=== PATIENT | male | born 1975 | race Caucasian/White ===

== ENCOUNTER 2020-03-12 00:30 | Inpatient (IN) | payer BC, SELFPAY ==
[2020-03-12] VITALS (16 sets, daily range): BP systolic 103–136; BP diastolic 59–82; PULSE 73–117; RESP 13–26; TEMP 36.1–38.1; O2SAT 94–100; BMI 26.0
--- NOTE | ~2020-03-12 | CT_ITS ---
EXAMINATION: CT femur LT w con DATE: 03/12/2020 02:47 INDICATION: Left thigh wound and pain. TECHNIQUE: Computed tomography (CT) of the left femur was performed with 100 mL Omnipaque 350 intrave nous contrast. Automated exposure control and iterative reconstruction technique were employed. The d ose-length product was 1131.82 mGy-cm. COMPARISON: None FINDINGS: Bone alignment is normal. No fracture. There is moderate left hip joint osteoarthritis with loose bodies. There is mild left knee osteoarthritis. No knee joint effusion. There is a skin defect in the proximal anterior thigh. There is hypoattenuation of vastus lateralis muscle and proximal rec tus femoris muscle. There is a fluid collection between the tensor fascia husam and iliotibial band an d vastus lateralis muscle measuring 6.7 x 1.5 x 12 cm with foci of gas. There is a small volume of fl uid with focus of gas adjacent to rectus femoris muscle proximally. There is subcutaneous edema in th e thigh with a lateral predominance. IMPRESSION: 1. Abscess in the left thigh anterior compartment with myositis involving vastus lateralis muscle and proximal rectus femoris muscle and some foci of soft tissue gas. Correlate clinically for necrotizin g fasciitis. Reviewed, dictated and finalized at location A. IMPRESSION: 1. Abscess in the left thigh anterior compartment with myositis involving vastu s lateralis muscle and proximal rectus femoris muscle and some foci of soft tis amy gas. Correlate clinically for necrotizing fasciitis.
--- NOTE | ~2020-03-12 | XR_ITS ---
EXAMINATION: XR femur LT min 2V DATE: 03/12/2020 01:34 INDICATION: Left thigh pain. TECHNIQUE: 2 views of left femur on 4 radiographs were obtained. COMPARISON: None. FINDINGS: Bone alignment is normal. No fracture. There is moderate left hip osteoarthritis with loose bodies. There is mild left knee osteoarthritis. No knee joint effusion. There is soft tissue swellin g of the thigh with foci of soft tissue gas. IMPRESSION: 1. Soft tissue swelling of the thigh with foci of soft tissue gas, consistent with infection. Correla te clinically for necrotizing fasciitis. 2. Polyarticular osteoarthritis. Left hip joint bodies. Reviewed, dictated and finalized at location A. IMPRESSION: 1. Soft tissue swelling of the thigh with foci of soft tissue gas, consistent w ith infection. Correlate clinically for necrotizing fasciitis. 2. Polyarticular osteoarthritis. Left hip joint bodies.
--- NOTE | 2020-03-12 00:58 | ED.LOWEXIN ---
HPI - Extremity Injury (Lower) General Chief Complaint: Extremity Injury, Lower Stated Complaint: left leg injury Time Seen by Provider: 03/12/20 00:57 Source: RN notes reviewed History of Present Illness HPI Narrative: Patient presents emergency department from home for left leg wound. Patient states that on 03/07/2020 he was carrying a box down the stairs when he had been stuck in the left anterior proximal thigh by a wooden spindle. He states initially he had some mild tenderness to the area and started yesterday began to have erythema and swelling noted on the left lateral leg states the pain is progressively worsened. Denies any fevers or chills numbness or tingling in the extremities or any other symptoms Related Data Home Medications Medication Instructions Recorded Confirmed paroxetine HCl 30 mg PO QAM 03/12/20 03/12/20 Allergies Allergy/AdvReac Type Severity Reaction Status Date / Time Sulfa (Sulfonamide Allergy Itching Verified 03/12/20 00:54 Antibiotics) Review of Systems Review of Systems: Narrative: Gen.: Denies fevers or chills ENT: Denies congestion Respiratory: Denies shortness of breath or cough CV: Denies chest pain or palpitations GI: Denies abdominal pain nausea, emesis or diarrhea Musculoskeletal: See HPI Neuro: Denies numbness, tingling, weakness or focal weakness Skin: See HPI Except as documented, all other systems reviewed and negative FORMERLY [facility], [facility] Past Medical History Medical History (Updated 03/12/20 @ 04:10 by Kermit Grider DO) Patient denies significant medical history Social History Social History (Updated 03/12/20 @ 01:00 by Kermit Grider DO) Smoking status: Never smoker Exam Narrative: Exam Narrative: APPEARANCE: No acute distress, nontoxic, resting in bed EYES: EOMI HEENT: Normocephalic, atraumatic, OMM RESPIRATORY: No respiratory distress Clear to auscultation bilaterally with no rhonchi wheezing or rales. CARDIOVASCULAR: Regular rate and rhythm without murmurs rubs or gallops. ABDOMINAL: Soft, nontender, nondistended, no rebound or guarding MUSCULOSKELETAl: Moves all extremities. No clubbing, cyanosis erythema over the left anterior lateral thigh down to the lateral knee with swelling present, tenderness palpation of the lateral thigh, left anterior superior leg has a open to centimeter wound with surrounding erythema no active drainage dorsalis pedis pulse 2+ NEURO: Awake and alert. Following commands, speech normal, no focal deficits SKIN:: Warm, dry. No rashes lesions or abrasions PSYCHIATRIC: Normal affect/mood, Course Course Emergency Course: Called and discussed with radiology Dr. Pate. CT scan shows only air and fluid in the abscess no other signs of air believes this is a abscess at this time. No signs of necrotizing fasciitis Called and discussed with Dr. Emmanuel for general surgery presentation work-up. Agrees with admission to his service at this time. Request patient remain n.p.o. Agrees with vancomycin and Zosyn Discussed with patient and family results of workup and diagnosis. Discussed need for admission. Patient and family understand and agree to current treatment plan Vital Signs Vital signs: Vital Signs Temperature 99.4 F 03/12/20 00:34 Pulse Rate 117 H 03/12/20 00:34 Respiratory Rate 18 03/12/20 00:34 Blood Pressure 125/80 03/12/20 00:34 Pulse Oximetry 100 03/12/20 00:34 Temperature 99.4 F 03/12/20 00:34 Pulse Rate 117 H 03/12/20 00:34 Respiratory Rate 18 03/12/20 00:34 Blood Pressure 125/80 03/12/20 00:34 Pulse Oximetry 100 03/12/20 00:34 MDM - Extremity Injury (Lower) Lab Data Result diagrams: 03/12/20 01:12 03/12/20 01:12 Labs: Lab Results 03/12/20 03/12/20 03/12/20 Range/Units 01:12 01:12 01:12 WBC 8.6 (4.5-10.0) K/mm3 RBC 4.07 L (4.6-6.20) M/mm3 Hgb 13.0 L (14.0-18.0) g/dL Hct 37.3 L (42.0-52.0) % MCV 91.6 (80-100) fl MCH 3
[2020-03-12 01:21] LABS: Basophils Percent Auto 0.2 % (0.2-1.2); Eosinophils Absolute Auto 0.1 K/mm3 (0-0.3); Eosinophils Percent Auto 0.9 % (0-4.4); Hematocrit 37.3 % (42.0-52.0); Immature Granulocyte Absolute 0.07 K/mm3 (0.00-0.031); Immature Granulocyte Percent A 0.8 % (0-0.5); Lymphocytes Absolute Auto 1.59 K/mm3 (0.9-3.2); Lymphocytes Percent Auto 18.6 % (18.3-44.2); Mean Corpuscular HGB Conc 34.9 g/dl (32-36); Mean Corpuscular Hemoglobin 31.9 pg (26-34); Mean Corpuscular Volume 91.6 fl (80-100); Mean Platelet Volume 8.9 fl (7.4-10.4); Monocytes Absolute Auto 0.6 K/mm3 (0.1-0.6); Monocytes Percent Auto 6.7 % (2.6-8.5); Neutrophils Absolute Auto 6.2 K/mm3 (1.3-6.7); Neutrophils Percent Auto 72.8 % (45.5-73.1); Platelet Count Result 301 k/mm3 (150-375); Red Blood Count 4.07 M/mm3 (4.6-6.20); Red Cell Distribution Width 12.8 % (11.5-14.5); White Blood Count 8.6 K/mm3 (4.5-10.0)
[2020-03-12 01:33] LABS: Anion Gap 10 mmol/L (8-16); Blood Urea Nitrogen 7 mg/dL (9-20); Calcium 9.2 mg/dL (8.4-10.2); Carbon Dioxide 26 mmol/L (22-30); Chloride 104 mmol/L (98-107); Estimated CRCL calculation 94 ml/min; Estimated Glomerular Filt Rate > 60; Glucose 134 mg/dL (75-110); Lactic Acid Reflex 1.5 mmol/L (0.7-2.1); Potassium 3.6 mmol/L (3.4-5.0); Sodium 140 mmol/L (137-145)
[2020-03-12] MEDS: MORPHINE SULFATE 4 MG/ML INJ IV PUSH ×6 (02:05→23:57)
--- NOTE | 2020-03-12 05:46 | ADMGEN ---
This patient, Joseph Francois, was admitted to 2 Medical Room 251-01. Patient/family oriented to hospital policies and general routines including ID bracelet, bed and alarms, visiting hours, pain management, procedures, bathroom and other care routines, personal items, smoking policy, room service/diet, and visiting hours. Valuables list has been completed. Information on how to activate the Rapid Response Team has been discussed. Patient/Family are encouraged to report perceived risks to care and to ask questions if they do not understand what they are told or what they should do.
[2020-03-12] MEDS: SODIUM CHLORIDE 0.9% IV 1,000 ML 125 ML IV CONT ×2 (06:36→20:41)
--- NOTE | 2020-03-12 10:42 | PC.NURSE ---
To OR per bed, IV saline locked. Report given to CHAR Sandoval. Hard chart and IV zosyn scheduled for 1130 sent with patient.
--- NOTE | 2020-03-12 10:45 | PM.IMHP ---
H&P: HPI History of Present Illness Date/Time: 03/12/20 10:45 Chief complaint: Left leg cellulitis Narrative: Joseph Francois is a 44 year old male presenting to ED c/o progressively worsening left lateral upper thigh pain over last few days. Pt reports he was carrying a box on some stairs when he slipped and ran into a spindle, this happened on 03/07. Pt reports small laceration in his groin area. Pt reports some minimal pain in groin area, stating majority of pain is in the upper lateral thigh. Pt describes progressive swelling as well. Pt reports difficulty walking secondary to pain. Pt denies any numbness or other symptoms. Pt does describe some fevers at home. Review of Systems Constitutional: Constitutional: Reports body ache(s), Reports chills, Reports fatigue and Reports weakness Eyes: Eyes: Reports no additional eye complaints ENT: Reports Normal hearing present and Denies dysphagia Cardiovascular: Cardiovascular: Denies chest pain, Denies pedal edema, Reports leg edema and Denies palpitations Respiratory: Respiratory: Denies cough and Denies dyspnea Gastrointestinal: Gastrointestinal: Denies abdominal pain, Denies bloating, Denies constipation, Denies diarrhea, Denies nausea and Denies vomiting Genitourinary: Genitourinary: Denies hematuria, Denies dysuria and Denies urinary frequency Musculoskeletal: Musculoskeletal: Reports no additional musculoskeletal complaints Integumentary/Breasts: Skin/Breast: Reports system reviewed and no additional complaints, except as docu Neurologic: Reports system reviewed and no additional complaints, except as documented Psychiatric: Psychiatric: Reports no additional psychiatric complaints PMF Past Medical History Medical History Patient denies significant medical history Social History Social History Smoking status: Current every day smoker Smokeless tobacco user: chewing tobacco Second hand tobacco smoke exposure: Yes Alcohol intake: former Substance use: never Gender identity (if verbalized by the patient): Male Spiritual care concerns: No Meds Home Medications and Allergies Home Medications Medication Instructions Recorded Confirmed Type paroxetine HCl 30 mg PO QAM 03/12/20 03/12/20 History Allergies Allergy/AdvReac Type Severity Reaction Status Date / Time Sulfa (Sulfonamide Allergy Itching Verified 03/12/20 00:54 Antibiotics) Vital Signs Vital Signs - 24 hr 03/12/20 00:34 03/12/20 04:40 03/12/20 05:51 Temperature 37.4 C 37.4 C 38.1 C H Pulse Rate 117 H 96 100 Respiratory Rate 18 18 16 Blood Pressure 125/80 109/64 136/78 Pulse Oximetry 100 100 98 03/12/20 07:31 03/12/20 08:01 Temperature 38.1 C H 37.0 C Pulse Rate Respiratory Rate Blood Pressure Pulse Oximetry Exam Const: General: no acute distress Eyes: General: appearance normal, both eyes and all related structures Pupils: Equal, round and reactive pupils present EOM: EOMs intact bilaterally Neck: Neck: supple and no JVD Lymphatic: lymphadenopathy not noted Resp: Auscultation: clear to auscultation bilaterally Cardio: Rate: regular rate Rhythm: regular rhythm GI: GI Palp: Yes Soft to palpation, No Tenderness to palpation present (GI), No Guarding due to palpation present (GI) and No Hernia present Skin: Other: small laceration in L groin c minimal serous drainage, minimal surrounding cellulitis, +edema, induration upper lat thigh, +TTP, no motor/sensory def Neuro: Speech: normal speech Motor exam (neuro): 5/5 motor strength present throughout Sensory Exam: normal sensation Extrem: General: normal exam except as noted Psych: Mental Status: mental status grossly normal H&P: Results Labs Labs: Short CBC 03/12/20 Range/Units 01:12 WBC 8.6 (4.5-10.0) K/mm3 Hgb 13.0 L (14.0-18.0) g/dL Hct 37.3 L (42.0
--- NOTE | 2020-03-12 11:07 | WPDANESEPPF ---
Anes - Initial Pre Proc Eval Procedure: Operation Date: 03/12/20 12:30 Proposed Procedures p COMPLEX INCISION,DRAINAGE AND DEBRIDEMENT LEFT GROIN UPPER THIGH ABCESS - Loren Emmanuel MD Date/Time: 03/12/20 11:07 Surgeon: Loren Emmanuel MD Pre Op Diagnosis: Left leg cellulitis Patient Data Age: 44 Gender: M Height: 5 ft 7 in Weight: 75.5 kg Last Vital Signs Temp 37.0 C 03/12/20 08:01 Pulse 100 03/12/20 05:51 Resp 16 03/12/20 05:51 BP 136/78 03/12/20 05:51 Pulse Ox 98 03/12/20 05:51 Allergies Allergy/AdvReac Type Severity Reaction Status Date / Time Sulfa (Sulfonamide Allergy Itching Verified 03/12/20 00:54 Antibiotics) Home Medications Medication Instructions Recorded Confirmed Type paroxetine HCl 30 mg PO QAM 03/12/20 03/12/20 History Laboratory Tests 03/12/20 03/12/20 03/12/20 01:12 01:12 01:12 WBC 8.6 K/mm3 K/mm3 (4.5-10.0) RBC 4.07 M/mm3 L M/mm3 (4.6-6.20) Hgb 13.0 g/dL L g/dL (14.0-18.0) Hct 37.3 % L % (42.0-52.0) MCV 91.6 fl fl (80-100) MCH 31.9 pg pg (26-34) MCHC 34.9 g/dl g/dl (32-36) RDW 12.8 % % (11.5-14.5) Plt Count 301 k/mm3 k/mm3 (150-375) MPV 8.9 fl fl (7.4-10.4) Immature Gran % (Auto) 0.8 % H % (0-0.5) Neut % (Auto) 72.8 % % (45.5-73.1) Lymph % (Auto) 18.6 % % (18.3-44.2) [place] % (Auto) 6.7 % % (2.6-8.5) Eos % (Auto) 0.9 % % (0-4.4) Baso % (Auto) 0.2 % % (0.2-1.2) Lymph # (Auto) 1.59 K/mm3 K/mm3 (0.9-3.2) [place] # (Auto) 0.6 K/mm3 K/mm3 (0.1-0.6) Eos # (Auto) 0.1 K/mm3 K/mm3 (0-0.3) Baso # (Auto) 0.0 K/mm3 K/mm3 (0.0-0.1) Abs Immat Gran (auto) 0.07 K/mm3 H K/mm3 (0.00-0.031) Absolute Neuts (auto) 6.2 K/mm3 K/mm3 (1.3-6.7) Absolute Nucleated RBC 0.0 K/mm3 K/mm3 (0.0-0.012) Nucleated RBC % 0.0 % % (0.0-0.2) Sodium 140 mmol/L mmol/L (137-145) Potassium 3.6 mmol/L mmol/L (3.4-5.0) Chloride 104 mmol/L mmol/L (98-107) Carbon Dioxide 26 mmol/L mmol/L (22-30) Anion Gap 10 mmol/L mmol/L (8-16) BUN 7 mg/dL L mg/dL (9-20) Creatinine 0.80 mg/dL mg/dL (0.7-1.3) Estim Creat Clear Calc 94 ml/min ml/min Estimated GFR > 60 (59 - ) Glucose 134 mg/dL H mg/dL (75-110) Lactic Acid 1.5 mmol/L mmol/L (0.7-2.1) Calcium 9.2 mg/dL mg/dL (8.4-10.2) Patient hx anesthesia problems: none Family hx anesthesia problems: none [facility] Past Medical History Medical History (Updated 03/12/20 @ 11:07 by Pelon Rich MD) Anxiety Patient denies significant medical history Social History Social History Smoking status: Current every day smoker Smokeless tobacco user: chewing tobacco Second hand tobacco smoke exposure: Yes Alcohol intake: former Substance use: never Gender identity (if verbalized by the patient): Male Spiritual care concerns: No Anes - Eval Final PreProcedure Day of Procedure 08/21/20 11:07 Patient weight: overweight Heart: regular rate and rhythm Lungs: decreased breath sounds Airway: Mallampati scale class II Neurological: alert and oriented Last oral intake: >/= 8 hours ASA classification: II Emergent: no Anesthetic plan: proceed Anesthesia type and monitoring: general LMA and standard monitoring Informed Consent: The patient's anesthetic plan and its attendant risks and benefits were discussed with the patient/family/POA. Questions were solicited and answers provided to the satisfaction of the patient/family/POA.
[2020-03-12] MEDS: LACTATED RINGERS 1,000 ML 30 ML IV CONT (11:15)
--- NOTE | 2020-03-12 11:52 | SUR.OPER ---
culture given to Tomi at 1145 in lab
--- NOTE | 2020-03-12 12:10 | P.OP_ITS ---
Procedure Note - Detailed Date of procedure: 03/12/20 Pre-op diagnosis: Left leg cellulitis Post-op diagnosis: other (Necrotizing fasciitis left upper lateral thigh) Procedure performed: complex incision and drainage, opening of the tensor fascia husam, washout necrotizing fasciitis left upper lateral thigh measuring approximately 25 x 20 cm Description of procedure: The patient was taken to the operating room placed in the supine position. After adequate induction of general anesthesia, the patient was prepped draped normal sterile fashion. A time-out was then done to verify the patient's identity as well as the procedure being performed. I began by opening the laceration with a 15 blade scalpel in his left groin. This was noted to track inferiorly and laterally. This was noted to involve both the subcutaneous tissue and the underlying fascia. Upon opening the fascia over the rectus femoris, some dishwater thin fluid was noted. Sterile cultures were taken and sent at this point. I then made a counter incision in the left upper lateral thigh, again with a 15 blade scalpel. Again infection was noted in the subcutaneous tissue as well as the underlying fascia. I opened up the tensor fascia husam and again then dishwater appearing fluid was noted. Upon opening this fascia I was able to connect the 2 incisions. Of note the underlying muscle was noted to be unremarkable. Once I had this area open and completely d rained, the measured approximately 25 x 20 cm. I then packed the incision with Kerlix roll soaked in Betadine. Sterile dressing was then placed. The patient tolerated the procedure well and will be extubated in the operating room postoperatively. He will be sent to the recovery room in stable condition. Implants: none Anesthesia: GETA Surgeon: Loern Emmanuel MD Estimated blood loss (mL): 10 Drains: No Packing: Yes Pathology: yes Complications: No immediate complications Condition: stable Disposition: PACU Findings: necrotizing fasciitis left upper lateral thigh
--- NOTE | 2020-03-12 13:09 | PC.NURSE ---
Returned from OR per bed. Report received from CHAR Pride. Patient on 2 liters nasal cannula, resting comfortably in bed with at bedside denying pain at this time. Dressing to patient's left thigh/groin assessed and noted to have strikethrough drainage of betadine from soaked packing to wound.
[2020-03-12] MEDS: PARoxetine 10 MG TABLET 30 MG PO (13:51)
--- NOTE | 2020-03-12 16:12 | PCRCNOTE ---
pt stated he hasn't worn his cpap or bipap unit in years and does not want to wear our unit.
[2020-03-13] VITALS: BP 120/66; PULSE 85; RESP 18; TEMP 36.8; O2SAT 99
[2020-03-13 04:00] VITALS: BP 131/75; PULSE 81; RESP 20; TEMP 36.4; O2SAT 94
[2020-03-13] MEDS: SODIUM CHLORIDE 0.9% IV 1,000 ML 125 ML IV CONT ×2 (05:17→14:24)
[2020-03-13] MEDS: MORPHINE SULFATE 4 MG/ML INJ IV PUSH ×5 (05:17→21:10)
[2020-03-13 05:40] LABS: Basophils Percent Auto 0.2 % (0.2-1.2); Eosinophils Percent Auto 0.1 % (0-4.4); Hematocrit 30.8 % (42.0-52.0); Hemoglobin 10.3 g/dL (14.0-18.0); Immature Granulocyte Absolute 0.09 K/mm3 (0.00-0.031); Immature Granulocyte Percent A 1.1 % (0-0.5); Lymphocytes Percent Auto 13.1 % (18.3-44.2); Mean Corpuscular HGB Conc 33.4 g/dl (32-36); Mean Corpuscular Hemoglobin 31.5 pg (26-34); Mean Corpuscular Volume 94.2 fl (80-100); Mean Platelet Volume 8.9 fl (7.4-10.4); Monocytes Absolute Auto 0.7 K/mm3 (0.1-0.6); Monocytes Percent Auto 8.1 % (2.6-8.5); Neutrophils Absolute Auto 6.5 K/mm3 (1.3-6.7); Neutrophils Percent Auto 77.4 % (45.5-73.1); Platelet Count Result 248 k/mm3 (150-375); Red Blood Count 3.27 M/mm3 (4.6-6.20); Red Cell Distribution Width 12.9 % (11.5-14.5); White Blood Count 8.4 K/mm3 (4.5-10.0)
[2020-03-13 05:52] LABS: Potassium 4.3 mmol/L (3.4-5.0)
[2020-03-13 05:53] LABS: Anion Gap 5 mmol/L (8-16); Blood Urea Nitrogen 4 mg/dL (9-20); Calcium 8.3 mg/dL (8.4-10.2); Carbon Dioxide 27 mmol/L (22-30); Chloride 106 mmol/L (98-107); Estimated CRCL calculation 94 ml/min; Estimated Glomerular Filt Rate > 60; Glucose 129 mg/dL (75-110); Sodium 138 mmol/L (137-145)
[2020-03-13] MEDS: PARoxetine 10 MG TABLET 30 MG PO (08:39)
--- NOTE | 2020-03-13 09:22 | PM.PNGS ---
Progress Note: A&P Assessment and Plan (1) Necrotizing fasciitis: Code(s): M72.6 - Necrotizing fasciitis Status: Acute Assessment and Plan: doing well, will plan to take back to OR in am for washout, drsg change, cont abx Subjective Subjective Date/Time Seen: 03/13/20 09:22 feels better, still c pain in LLE but much improved Review of Systems Constitutional: Constitutional: Reports body ache(s), Denies chills, Reports fatigue, Reports lethargy and Reports weakness Cardiovascular: Cardiovascular: Denies chest pain Respiratory: Respiratory: Denies dyspnea Gastrointestinal: Gastrointestinal: Denies abdominal pain, Denies constipation, Denies diarrhea, Denies nausea and Denies vomiting Exam Const: General: no acute distress Resp: Auscultation: clear to auscultation bilaterally Cardio: Rate: regular rate Rhythm: regular rhythm GI: Auscultation: normal bowel sounds Skin: Other: LLE wound - drsg C/D/I, decreased induration Objective Data Vital Signs Vital Signs: Vital Signs - 24 hr 03/12/20 10:56 03/12/20 11:56 03/12/20 12:10 Temperature 36.7 C 36.2 C L Pulse Rate 86 103 H 96 Respiratory Rate 20 18 26 H Blood Pressure 117/68 117/82 119/70 Pulse Oximetry 96 97 100 03/12/20 12:25 03/12/20 12:40 03/12/20 12:56 Temperature 36.6 C Pulse Rate 89 90 87 Respiratory Rate 13 14 14 Blood Pressure 107/70 104/59 L 103/66 Pulse Oximetry 94 94 94 03/12/20 13:40 03/12/20 14:00 03/12/20 15:43 Temperature 36.3 C L 36.1 C L Pulse Rate 91 100 Respiratory Rate 18 20 Blood Pressure 105/63 118/77 Pulse Oximetry 95 94 95 03/12/20 18:00 03/12/20 20:00 03/13/20 00:00 Temperature 36.5 C 36.8 C 36.8 C Pulse Rate 73 101 H 85 Respiratory Rate 18 22 H 18 Blood Pressure 111/64 121/73 120/66 Pulse Oximetry 94 98 99 03/13/20 04:00 Temperature 36.4 C L Pulse Rate 81 Respiratory Rate 20 Blood Pressure 131/75 Pulse Oximetry 94 Intake/Output Intake/Output: Intake & Output 03/10/20 03/11/20 03/12/20 03/13/20 23:59 23:59 23:59 23:59 Intake Total 2199 1400 Output Total 1000 Balance 1199 1400 Meds/Results Medications: Active Medications Generic Name Dose Route Start Last Admin Trade Name Freq PRN Reason Stop Dose Admin Piperacillin/Tazobactam/Dextrose 3.375 gm in 50 mls @ 100 mls/hr 03/12/20 11:30 03/13/20 07:32 Zosyn 3.375 Gm/D5w 50ml Pm IVPB Infused Q6HR SUHAS Infusion Sodium Chloride 1,000 mls @ 125 mls/hr 03/12/20 04:10 03/13/20 05:17 Normal Saline Iv IV CONT 125 mls/hr .Q8H SUHAS Administration Morphine Sulfate 4 mg 03/12/20 04:10 03/13/20 08:45 Morphine Sulfate Inj IV PUSH 4 mg Q2H PRN Administration Pain Rated 7-10 Ondansetron HCl 4 mg 03/12/20 11:08 Zofran Inj IV PUSH ONCE PRN Nausea Paroxetine HCl 30 mg 03/12/20 09:00 03/13/20 08:39 Paxil PO 30 mg QAM SUHAS Administration Radiology Results: ITS Impressions Femur X-Ray 03/12/20 07:16 IMPRESSION: 1. Soft tissue swelling of the thigh with foci of soft tissue gas, consistent with infection. Correlate clinically for necrotizing fasciitis. 2. Polyarticular osteoarthritis. Left hip joint bodies. Femur CT 03/12/20 08:13 IMPRESSION: 1. Abscess in the left thigh anterior compartment with myositis involving vastus lateralis muscle and proximal rectus femoris muscle and some foci of soft tissue gas. Correlate clinically for necrotizing fasciitis. Labs Labs: Laboratory Results - last 24 hr 03/13/20 03/13/20 03/13/20 05:09 05:09 05:09 WBC 8.4 RBC 3.27 L Hgb 10.3 L Hct 30.8 L MCV 94.2 MCH 31.5 MCHC 33.4 RDW 12.9 Plt Count 248 MPV 8.9 Immature Gran % (Auto) 1.1 H Neut % (Auto) 77.4 H Lymph % (Auto) 13.1 L [place] % (Auto) 8.1 Eos % (Auto) 0.1 Baso % (Auto) 0.2 Lymph # (Auto) 1.10 [place] # (Auto) 0.7 H Eos # (Auto) 0.0 Baso # (Auto) 0.0 Abs Immat Gran (auto) 0.09
--- NOTE | 2020-03-13 09:30 | WPDINFPN2 ---
Progress Note: A&P Assessment and Plan (1) Necrotizing fasciitis: Code(s): M72.6 - Necrotizing fasciitis Status: Acute Assessment and Plan: necrotizing fasciitis, no diabetes POD #1 REC PipTazo # 2 / 8, then oral Augmentin for another week. Midline and ok discharge planning, he is a good candidate for home iv Subjective Date/time seen: 03/13/20 09:30 Objective Data Vital Signs Vital Signs: Vital Signs - 24 hr 03/12/20 10:56 03/12/20 11:56 03/12/20 12:10 Temperature 36.7 C 36.2 C L Pulse Rate 86 103 H 96 Respiratory Rate 20 18 26 H Blood Pressure 117/68 117/82 119/70 Pulse Oximetry 96 97 100 03/12/20 12:25 03/12/20 12:40 03/12/20 12:56 Temperature 36.6 C Pulse Rate 89 90 87 Respiratory Rate 13 14 14 Blood Pressure 107/70 104/59 L 103/66 Pulse Oximetry 94 94 94 03/12/20 13:40 03/12/20 14:00 03/12/20 15:43 Temperature 36.3 C L 36.1 C L Pulse Rate 91 100 Respiratory Rate 18 20 Blood Pressure 105/63 118/77 Pulse Oximetry 95 94 95 03/12/20 18:00 03/12/20 20:00 03/13/20 00:00 Temperature 36.5 C 36.8 C 36.8 C Pulse Rate 73 101 H 85 Respiratory Rate 18 22 H 18 Blood Pressure 111/64 121/73 120/66 Pulse Oximetry 94 98 99 03/13/20 04:00 Temperature 36.4 C L Pulse Rate 81 Respiratory Rate 20 Blood Pressure 131/75 Pulse Oximetry 94 Intake/Output Intake/Output: Intake & Output 03/10/20 03/11/20 03/12/20 03/13/20 23:59 23:59 23:59 23:59 Intake Total 2199 1400 Output Total 1000 Balance 1199 1400 Meds/Results Medications: Active Medications Generic Name Dose Route Start Last Admin Trade Name Freq PRN Reason Stop Dose Admin Piperacillin/Tazobactam/Dextrose 3.375 gm in 50 mls @ 100 mls/hr 03/12/20 11:30 03/13/20 07:32 Zosyn 3.375 Gm/D5w 50ml Pm IVPB Infused Q6HR SUHAS Infusion Sodium Chloride 1,000 mls @ 125 mls/hr 03/12/20 04:10 03/13/20 05:17 Normal Saline Iv IV CONT 125 mls/hr .Q8H SUHAS Administration Morphine Sulfate 4 mg 03/12/20 04:10 03/13/20 08:45 Morphine Sulfate Inj IV PUSH 4 mg Q2H PRN Administration Pain Rated 7-10 Ondansetron HCl 4 mg 03/12/20 11:08 Zofran Inj IV PUSH ONCE PRN Nausea Paroxetine HCl 30 mg 03/12/20 09:00 03/13/20 08:39 Paxil PO 30 mg QAM SUHAS Administration Radiology Results: ITS Impressions Femur X-Ray 03/12/20 07:16 IMPRESSION: 1. Soft tissue swelling of the thigh with foci of soft tissue gas, consistent with infection. Correlate clinically for necrotizing fasciitis. 2. Polyarticular osteoarthritis. Left hip joint bodies. Femur CT 03/12/20 08:13 IMPRESSION: 1. Abscess in the left thigh anterior compartment with myositis involving vastus lateralis muscle and proximal rectus femoris muscle and some foci of soft tissue gas. Correlate clinically for necrotizing fasciitis. Labs Labs: Laboratory Results - last 24 hr 03/13/20 03/13/20 03/13/20 05:09 05:09 05:09 WBC 8.4 RBC 3.27 L Hgb 10.3 L Hct 30.8 L MCV 94.2 MCH 31.5 MCHC 33.4 RDW 12.9 Plt Count 248 MPV 8.9 Immature Gran % (Auto) 1.1 H Neut % (Auto) 77.4 H Lymph % (Auto) 13.1 L [place] % (Auto) 8.1 Eos % (Auto) 0.1 Baso % (Auto) 0.2 Lymph # (Auto) 1.10 [place] # (Auto) 0.7 H Eos # (Auto) 0.0 Baso # (Auto) 0.0 Abs Immat Gran (auto) 0.09 H Absolute Neuts (auto) 6.5 Absolute Nucleated RBC 0.0 Nucleated RBC % 0.0 Sodium 138 Potassium 4.3 Chloride 106 Carbon Dioxide 27 Anion Gap 5 L BUN 4 L Creatinine 0.80 Estim Creat Clear Calc 94 Estimated GFR > 60 Glucose 129 H Lactic Acid 1.0 Calcium 8.3 L
[2020-03-13 10:00] VITALS: BP 109/70; PULSE 105; RESP 16; TEMP 36.7; O2SAT 98
[2020-03-13 10:34] VITALS: O2SAT 96
--- NOTE | 2020-03-13 11:12 | WPDANESPN ---
Anes - Prog Note Post-Op Date/Time: 03/13/20 11:12 Cardiovascular status: normal Respiratory status: normal Airway patency: baseline Mental status: baseline Post-Op hydration status: normal Vital Signs: Last Vital Signs Temp 36.4 C L 03/13/20 04:00 Pulse 81 03/13/20 04:00 Resp 20 03/13/20 04:00 BP 131/75 03/13/20 04:00 Pulse Ox 96 03/13/20 10:34 I/O: Intake & Output 03/12/20 03/13/20 03/13/20 23:59 07:59 15:59 Intake Total 1149 1400 Balance 1149 1400 Laboratory Tests 03/13/20 05:09 03/13/20 05:09 03/13/20 03/13/20 03/13/20 05:09 05:09 05:09 WBC 8.4 RBC 3.27 L Hgb 10.3 L Hct 30.8 L MCV 94.2 MCH 31.5 MCHC 33.4 RDW 12.9 Plt Count 248 MPV 8.9 Immature Gran % (Auto) 1.1 H Neut % (Auto) 77.4 H Lymph % (Auto) 13.1 L [place] % (Auto) 8.1 Eos % (Auto) 0.1 Baso % (Auto) 0.2 Lymph # (Auto) 1.10 [place] # (Auto) 0.7 H Eos # (Auto) 0.0 Baso # (Auto) 0.0 Abs Immat Gran (auto) 0.09 H Absolute Neuts (auto) 6.5 Absolute Nucleated RBC 0.0 Nucleated RBC % 0.0 Sodium 138 Potassium 4.3 Chloride 106 Carbon Dioxide 27 Anion Gap 5 L BUN 4 L Creatinine 0.80 Estim Creat Clear Calc 94 Estimated GFR > 60 Glucose 129 H Lactic Acid 1.0 Calcium 8.3 L Microbiology 03/12/20 11:38 Abscess Anaerobic Culture - Preliminary Post-procedural complaints: none Patient Feedback: Patient satisfied with anesthetic care.
--- NOTE | 2020-03-13 11:14 | WPDANESEPP ---
Anes - Eval Pre Procedure Procedure: wound washout and dressing change Date/Time: 03/13/20 11:14 Pre Op Diagnosis: Left leg cellulitis Patient Data Age: 44 Gender: M Height: 1.7 m Weight: 75.5 kg Last Vital Signs Temp 36.4 C L 03/13/20 04:00 Pulse 81 03/13/20 04:00 Resp 20 03/13/20 04:00 BP 131/75 03/13/20 04:00 Pulse Ox 96 03/13/20 10:34 Allergies Allergy/AdvReac Type Severity Reaction Status Date / Time Sulfa (Sulfonamide Allergy Itching Verified 03/12/20 00:54 Antibiotics) Home Medications Medication Instructions Recorded Confirmed Type paroxetine HCl 30 mg PO QAM 03/12/20 03/12/20 History Laboratory Tests 03/13/20 03/13/20 03/13/20 05:09 05:09 05:09 WBC 8.4 K/mm3 K/mm3 (4.5-10.0) RBC 3.27 M/mm3 L M/mm3 (4.6-6.20) Hgb 10.3 g/dL L g/dL (14.0-18.0) Hct 30.8 % L % (42.0-52.0) MCV 94.2 fl fl (80-100) MCH 31.5 pg pg (26-34) MCHC 33.4 g/dl g/dl (32-36) RDW 12.9 % % (11.5-14.5) Plt Count 248 k/mm3 k/mm3 (150-375) MPV 8.9 fl fl (7.4-10.4) Immature Gran % (Auto) 1.1 % H % (0-0.5) Neut % (Auto) 77.4 % H % (45.5-73.1) Lymph % (Auto) 13.1 % L % (18.3-44.2) [place] % (Auto) 8.1 % % (2.6-8.5) Eos % (Auto) 0.1 % % (0-4.4) Baso % (Auto) 0.2 % % (0.2-1.2) Lymph # (Auto) 1.10 K/mm3 K/mm3 (0.9-3.2) [place] # (Auto) 0.7 K/mm3 H K/mm3 (0.1-0.6) Eos # (Auto) 0.0 K/mm3 K/mm3 (0-0.3) Baso # (Auto) 0.0 K/mm3 K/mm3 (0.0-0.1) Abs Immat Gran (auto) 0.09 K/mm3 H K/mm3 (0.00-0.031) Absolute Neuts (auto) 6.5 K/mm3 K/mm3 (1.3-6.7) Absolute Nucleated RBC 0.0 K/mm3 K/mm3 (0.0-0.012) Nucleated RBC % 0.0 % % (0.0-0.2) Sodium 138 mmol/L mmol/L (137-145) Potassium 4.3 mmol/L mmol/L (3.4-5.0) Chloride 106 mmol/L mmol/L (98-107) Carbon Dioxide 27 mmol/L mmol/L (22-30) Anion Gap 5 mmol/L L mmol/L (8-16) BUN 4 mg/dL L mg/dL (9-20) Creatinine 0.80 mg/dL mg/dL (0.7-1.3) Estim Creat Clear Calc 94 ml/min ml/min Estimated GFR > 60 (59 - ) Glucose 129 mg/dL H mg/dL (75-110) Lactic Acid 1.0 mmol/L mmol/L (0.7-2.1) Calcium 8.3 mg/dL L mg/dL (8.4-10.2) Patient hx anesthesia problems: none Family hx anesthesia problems: none PMFSH Past Medical History Medical History (Updated 03/13/20 @ 09:24 by Loren Emmanuel MD) Anxiety Patient denies significant medical history Social History Social History Smoking status: Current every day smoker Smokeless tobacco user: chewing tobacco Second hand tobacco smoke exposure: Yes Alcohol intake: former Substance use: never Gender identity (if verbalized by the patient): Male Spiritual care concerns: No Exam Day of Procedure 03/13/20 11:14
--- NOTE | 2020-03-13 11:48 | CONS_ITS ---
DATE OF CONSULTATION: 03/13/2020 REASON FOR CONSULTATION: Necrotizing fasciitis. HISTORY OF PRESENT ILLNESS: The patient is a 44-year-old male without history of diabetes. He has had a previous nasal surgery for deviated septum, otherwise, no operations. He knows no vascular compromise to the left leg and never had any previous major injuries to the left leg. He has been on no antibiotics in the last 6 weeks for any reason and no immunosuppressants. He presented to the hospital early yesterday with stabbing pain deep in the left inguinal area and the proximal left thigh associated with a laceration. Five days before admission, he had been walking down some steps when his leg was punctured by a spindle on the railing. He had several other abrasions in the lower abdomen and in the leg as well. He noted edema throughout the leg just prior to admission and pain. No fever, chills, or sweats. He had physical exam followed by a CT scan here and then was taken to the operating room yesterday where he was found to have necrotizing fasciitis of the left inguinal area and proximal thigh. His pain is much improved today. No nausea, vomiting, skin rash. He has been given a booster for tetanus in August of this year. ALLERGIES: SULFA, WHICH CAUSES ITCHING. HABITS: No alcohol and no smoking, but he does have chewing tobacco. MEDICATIONS: Present medications, he also received vancomycin now stopped. He remains on piperacillin day 2. No immunosuppressants. PAST MEDICAL HISTORY: In addition to the above, anxiety. No chronic medical illnesses. REVIEW OF SYSTEMS: Skin, musculoskeletal, constitutional, GI, respiratory, otherwise, negative. SOCIAL HISTORY: Works in the [employer]. and lives locally. PHYSICAL EXAMINATION: GENERAL: This is a male, who appears actual age. No acute distress. VITAL SIGNS: Temperature shortly after arrival up to 38.1, since then he has been afebrile. 131/75, 81, 20, 94% room air. SKIN: No generalized rashes. Warm and dry. No erythroderma. No petechiae. NODES: He has no cervical adenopathy. EENT: The conjunctivae are clear. Pupils equal, round, and reactive to light. The oropharynx, oral mucosa normal. NECK: No meningismus. No masses. LUNGS: Clear to auscultation and percussion. CARDIAC: Regular rate and rhythm. No murmur or gallop. Pulses are 2+ and equal. ABDOMEN: Soft, nontender. No organomegaly. No masses. EXTREMITIES: Distally, he has no clubbing, cyanosis, edema. No splinter hemorrhages. He has a surgical dressing in place over the proximal anterior and lateral thigh. No odor. NEUROLOGIC: Motor strength is 5/5 in the distal left leg. Light touch sensation is normal. He does have diminished range of motion of the hip in flexion. LABORATORY DATA: White count 8.4, hemoglobin 10.3, platelets are 248. Differential, minimal left shift. Chemistries normal except for glucose 129. This is a random specimen. Blood cultures, no growth so far. Intraoperative specimen has not yet been processed for smear or culture. RADIOLOGY: CT of the thigh showed abscess in the left thigh anterior compartment with myositis and foci of soft tissue gas. ASSESSMENT: 1. Necrotizing fasciitis of the left thigh with abscess, now postop day 1 drainage, and acceptable progress. Fever is on this basis. He received a booster vaccination for tetanus earlier this year. Other bacteria I suspected including various streptococci, anaerobic infection or enteric gram-negative such as E coli. 2. Past anxiety. 3. Hyperglycemia without history of diabetes mellitus. RECOMMENDATIONS: 1. Followup blood sugar over time. 2. Appropriate candidate for home IV therapy. 3. Place midline and setup for home IV through the [facility]
[2020-03-13 14:00] VITALS: BP 141/83; PULSE 90; RESP 18; TEMP 36.6; O2SAT 100
[2020-03-13] MEDS: SALINE LOCK FLUSH 10 ML IV PUSH ×2 (14:00→21:11)
[2020-03-13 22:00] VITALS: BP 132/81; PULSE 96; RESP 18; TEMP 36.6; O2SAT 95
[2020-03-14] VITALS (16 sets, daily range): BP systolic 107–138; BP diastolic 58–86; PULSE 79–112; RESP 10–18; TEMP 36.4–37.6; O2SAT 93–99
[2020-03-14] MEDS: SODIUM CHLORIDE 0.9% IV 1,000 ML 125 ML IV CONT (00:12)
[2020-03-14] MEDS: MORPHINE SULFATE 4 MG/ML INJ IV PUSH ×2 (00:13→05:37)
[2020-03-14] MEDS: SALINE LOCK FLUSH 10 ML IV PUSH ×4 (05:40→22:10)
--- NOTE | 2020-03-14 07:23 | WPDANESEFPP ---
Anes - Eval Final PreProcedure Day of Procedure 03/14/20 07:23 Patient weight: overweight Heart: regular rate and rhythm Lungs: clear to auscultation and normal air movement Airway: Mallampati scale class II Neurological: alert and oriented Last oral intake: >/= 8 hours ASA classification: II Emergent: no Anesthetic plan: proceed Anesthesia type and monitoring: general GIVS Informed Consent: The patient's anesthetic plan and its attendant risks and benefits were discussed with the patient/family/POA. Questions were solicited and answers provided to the satisfaction of the patient/family/POA.
[2020-03-14] MEDS: BUPIVACAINE/EPINEPHRINE 0.5% 30 ML VIAL 20 ML INFILTRATE (07:44)
[2020-03-14] MEDS: LACTATED RINGERS 1,000 ML 30 ML IV CONT (07:50)
--- NOTE | 2020-03-14 07:52 | PM.PROC ---
Procedure Note - Detailed Date of procedure: 03/14/20 Pre-op diagnosis: Left leg cellulitis Necrotizing fasciitis left lower extremity Post-op diagnosis: same Procedure performed: reexploration and washout left lower extremity necrotizing fasciitis, dressing change Description of procedure: The patient was taken the operating room placed in the supine position. After adequate induction of general anesthesia, the patient was prepped and draped normal sterile fashion. A time-out was then done to verify the patient's identity as well as the procedure being performed. We began by taking down the previous dressing. Once the previous dressing was removed, wound was examined. No further evidence of necrosis or active infection was noted. Given extensive washout was done of the wound. This washout included subfascial plane. Once the wound was completely washed out, packed both openings with a 4 x 4 dressing soaked in normal saline. Sterile dressings were then placed. Patient tolerated the procedure well and was extubated in the operating room postoperatively. He will be transferred to the recovery room in stable condition. Implants: none Anesthesia: GETA and local Surgeon: Loren Emmanuel MD Estimated blood loss (mL): 5 Drains: No Packing: Yes Pathology: none sent Complications: No immediate complications Condition: stable Disposition: PACU Findings: no further infection noted
--- NOTE | 2020-03-14 09:44 | PC.NURSE ---
Returned from OR per Bed. Report received from CHAR Melo.
--- NOTE | 2020-03-14 09:55 | PC.NURSE ---
I have the wrong dose of Paxil for this morning at 0900. I left a message for pharmacy and requested that they send the correct dose of medication through the tube system. I will call again if I do not receive this medication.
[2020-03-14] MEDS: oxyCODONE/ACETAMINOPHEN 5-325 MG TABLET 1 TABLET PO ×3 (10:36→19:37)
--- NOTE | 2020-03-14 10:42 | PC.NURSE ---
I called pharmacy again because I am still missing the 0900 dose of Paxil.
[2020-03-14] MEDS: PARoxetine 10 MG TABLET 30 MG PO (11:04)
[2020-03-15] MEDS: MORPHINE SULFATE 4 MG/ML INJ IV PUSH ×3 (00:01→06:25)
[2020-03-15 02:00] VITALS: BP 135/71; PULSE 98; RESP 16; TEMP 37.1; O2SAT 96
[2020-03-15 06:00] VITALS: BP 121/65; PULSE 91; RESP 16; TEMP 36.6; O2SAT 91
[2020-03-15 06:06] LABS: Estimated CRCL calculation 94 ml/min; Estimated Glomerular Filt Rate > 60
[2020-03-15] MEDS: SALINE LOCK FLUSH 10 ML IV PUSH ×2 (06:21→14:01)
--- NOTE | 2020-03-15 07:11 | WPDANESPN ---
Anes - Prog Note Post-Op Date/Time: 03/15/20 07:11 Cardiovascular status: normal Respiratory status: normal Airway patency: baseline Mental status: baseline Post-Op hydration status: normal Vital Signs: Last Vital Signs Temp 36.6 C 03/15/20 06:00 Pulse 91 03/15/20 06:00 Resp 16 03/15/20 06:00 BP 121/65 03/15/20 06:00 Pulse Ox 91 03/15/20 06:00 I/O: Intake & Output 03/14/20 03/14/20 03/15/20 15:59 23:59 07:59 Intake Total 3001 2810 1100 Balance 3001 2810 1100 Laboratory Tests 03/13/20 05:09 03/15/20 05:17 03/15/20 05:17 Creatinine 0.80 Estim Creat Clear Calc 94 Estimated GFR > 60 Microbiology 03/12/20 11:38 Abscess Anaerobic Culture - Preliminary 03/12/20 11:38 Abscess Aerobic Culture - Final Post-procedural complaints: none Patient Feedback: Patient satisfied with anesthetic care.
[2020-03-15] MEDS: oxyCODONE/ACETAMINOPHEN 5-325 MG TABLET 1 TABLET PO ×3 (07:56→15:40)
[2020-03-15] MEDS: PARoxetine 10 MG TABLET 30 MG PO (07:57)
[2020-03-15 10:27] VITALS: BP 124/65; PULSE 88; RESP 19; TEMP 37.1; O2SAT 97
--- NOTE | 2020-03-15 11:39 | PM.DS ---
DS: Admitting Diagnosis Admitting Diagnosis Admitting Diagnosis: Left leg cellulitis DS: Discharge Diagnosis Discharge Diagnosis (1) Necrotizing fasciitis: Code(s): M72.6 - Necrotizing fasciitis Status: Acute Assessment and Plan: doing well, cont local wound care, abx per ID, f/u 1 wk DS: Summary Hospital Course Reason for hospitalization: Necrotizing fasciitis left lower extremity Hospital Course: Patient is a 44-year-old male that presented to the emergency department on 03/12/2020 with left lower extremity infection. CT scan done as well as exam was concerning for a necrotizing fasciitis. The patient was urgently taken to the operating and exploration confirmed necrotizing fasciitis. The patient had complex incision and drainage as well as washout. Please see full operative report for details of this procedure. Postoperative, the patient did well and was transferred to the floor. The patient continued to get wound care, as well as IV antibiotics per Infectious Disease. The patient subsequently went back to the operating room on 03/14/2020 for washout and dressing change. No further infection was noted at that time, please see full operative report for details. The patient will now be discharged home with continued wound care as well as antibiotics per Infectious Disease. The patient is to follow up with me in 1 week for wound check. Status at Discharge Functional status at discharge: independent ambulation Overall status at discharge: patient is progressing back to baseline Time Spent with Patient Time attestation: Total time spent providing and/or coordinating discharge services: Time spent: Less than 30 minutes Exam Const: General: no acute distress Resp: Auscultation: clear to auscultation bilaterally Cardio: Rate: regular rate Rhythm: regular rhythm GI: Inspection: non-distended GI Palp: Yes Soft to palpation, No Firmness to palpation present (GI), No Tenderness to palpation present (GI), No Guarding due to palpation present (GI) and No Hernia present Skin: Other: LLE wounds C/D/I, decreased induration, no cellulitis DS: Data Data Completed and Pending Labs on day of discharge: Labs from last 24 hours 03/15/20 05:17 Creatinine 0.80 Estim Creat Clear Calc 94 Estimated GFR > 60 Preliminary micro results at discharge 03/12/20 11:38 Anaerobic Culture - Preliminary Abscess 03/12/20 01:11 Blood Culture - Preliminary Blood 03/12/20 01:12 Blood Culture - Preliminary Blood Discharge Plan Discharge Attending physician on discharge: Loren Emmanuel Consulting providers: Mark Saab Discharging Clinician: Loren Emmanuel Anticipated Discharge Date/Time: 03/15/20 15:00 Patient Disposition: Home Health Service Activity: may shower and as tolerated Diet: as tolerated Wound Care Instructions: keep dressing dry and change dressing daily Patient Instructions: Antibiotic Form, Piperacillin/Tazobactam (By injection), How to Stop Smoking (DC), Pain Management (DC), Necrotizing Fasciitis (DC), How to Care for Your Midline Catheter (DC), Midline Catheter (DC), Midline Catheter (GEN) Stand Alone Forms: General Discharge Information Follow-up/Referrals: Loren Emmanuel MD [Physician] - 1 Week Discharge Medications: New oxycodone-acetaminophen 5-325 mg Tablet 1 tablet PO Q4H PRN (Reason: Pain Rated 7-10) Qty: 40 RF: 0 amoxicillin-pot clavulanate [Augmentin] 500-125 mg Tablet 1 tablet PO Q8HR Qty: 36 RF: 0 Zosyn in dextrose (iso-osm) 3.375 gram/50 mL Piggyback 3.375 g IV Q6HR 5 Days Qty: 1000 RF: 0 Continued paroxetine HCl 30 mg Tablet 30 mg PO QAM RF: 0 Date of admission: 03/13/20 12:24 Primary Care Provider: MaryanneSana Admitting Provider: Loren Emmanuel Attending physician on admission: Loren Emmanuel Condition: Stable
[2020-03-15 14:00] VITALS: BP 136/68; PULSE 72; RESP 14; TEMP 36.3; O2SAT 97
== END 2020-03-15 17:19 | disposition home or self-care (01) | DRG 579 ==
LOC: ANHED 04:10 → ANH2MED 04:55
PROVIDERS: Admitting Provider Surgery; Emergency Provider Emergency Medicine; PCP Nurse Practitioner Adult Health; Visit Provider Surgery
PROC: 0J9M0ZZ Drainage of Left Upper Leg Subcutaneous Tissue and Fascia, Open Approach (ICD-10-PCS; principal; 2020-03-12 12:30)
PROC: 3E10X8Z Irrigation of Skin and Mucous Membranes using Irrigating Substance (ICD-10-PCS; principal; 2020-03-14 07:30)
DX: L03.116 Cellulitis of left lower limb (principal); M72.6 Necrotizing fasciitis; F17.210 Nicotine dependence, cigarettes, uncomplicated; F17.220 Nicotine dependence, chewing tobacco, uncomplicated; F41.9 Anxiety disorder, unspecified; R73.9 Hyperglycemia, unspecified
CPT/HCPCS: 36415; 36569; 73552; 73701; 80048; 82565; 83605; 85025; 87040; 87070; 87075; 87205; 96365; 96367; 96375; 96376; 99285; A9270; C1751; G0378; J0131; J1100; J1170; J2250; J2270; J2405; J2543; J2704; J3010; J3370; J7030; J7120; Q9967